=== PATIENT | female | born 1945 | race Caucasian/White ===

== ENCOUNTER → 2017-04-24 | Outpatient (CLI) | payer MEDICARE ==
--- NOTE | 2017-04-24 23:33 | US ---
Procedure: US LOWER EXTREMITY VEINS LIMITED/UNILATERAL/FOLLOW UP Exam Date: 04/24/2017 Ordering Provider: DELVIS GOTTLIEB Clinical Indication: Left lower extremity pain Comparison: None Real time ultrasound was utilized for evaluation of the deep veins of the Left lower extremity. Color Doppler and pulse Doppler analysis was performed, including B-mode/grayscale imaging, Doppler spectral analysis and color flow analysis. Real time visualization of the left lower extremity deep veins was accomplished. Accounts Payable Clerk images recorded. The deep veins demonstrated no abnormal intraluminal signal. The pulse Doppler and color Doppler flow patterns demonstrated normal venous flow with respiratory variation. There was increased flow with distal augmentation maneuvers. IMPRESSION: There were no findings to suggest intraluminal clot or obstruction in the deep veins of the left lower extremity. Electronically signed by: Reynaldo Breen MD 04/24/2017 11:32 PM ENVIRONMENTAL PROFESSIONAL
== END ==
LOC: US 08:41
PROVIDERS: ATTEND General Practice
DX: M79.605 Pain in left leg (principal)

== ENCOUNTER → 2017-07-06 | Outpatient (CLI) | payer MEDICARE ==
--- NOTE | 2017-07-06 10:43 | RAD ---
EXAM DESCRIPTION: Knee,Left Complete CLINICAL HISTORY: 72 years Female, PAIN IN LEFT KNEE TECHNIQUE: 4 views of the left knee were performed. COMPARISON: None available. FINDINGS: The visualized bones appear well mineralized. No acute fracture or dislocation. Small suprapatellar joint effusion is noted. The soft tissues appear grossly unremarkable. Total knee arthroplasty is identified. There is anterior translation of the tibia in relation to the femur. On the standing radiograph there is widening of the medial joint space. IMPRESSION: Total knee arthroplasty is identified. There is anterior translation of the tibia in relation to the femur. On the standing radiograph there is widening of the medial joint space. Electronically signed by: Luana Correa MD 07/06/2017 10:41 AM CDT
--- NOTE | 2017-07-06 10:44 | RAD ---
EXAM DESCRIPTION: Pelvis CLINICAL HISTORY: 72 years Female, PAIN IN LEFT HIP COMPARISON: CT abdomen and pelvis with contrast dated 11/23/2015. TECHNIQUE: AP radiograph of the pelvis was performed. FINDINGS: The pelvic ring appears grossly intact on this single AP radiograph. No acute fracture or dislocation. Bilateral sacroiliac joints appear normal. Bilateral hip joints appear normal. The visualized lumbo-sacral spine demonstrates mild degenerative changes. IMPRESSION: Single AP radiograph of the pelvis demonstrates grossly intact pelvic ring. Electronically signed by: Luana Correa MD 07/06/2017 10:42 AM CDT
== END ==
LOC: RAD 07:50
PROVIDERS: ATTEND Orthopaedic Surgery
DX: M25.562 Pain in left knee (principal); M25.552 Pain in left hip; Z96.652 Presence of left artificial knee joint